=== PATIENT | male | born 1945 | race Caucasian/White ===

== ENCOUNTER 2016-06-01 06:43 | Day surgery (SDC) | payer OTHER ==
--- NOTE | ~2016-06-01 | EGD ---
EGD REPORT [facility] [address] [place] [address] NAME: TREMAYNE LINDSEY : [birth year] STATUS : REG [facility]#: [id number] AGE: 70 ADM/REG DATE : 06/01/16 MR#: [id number] REPORT SERV DATE: 06/01/16 DICTATED BY: CHARLES GILES DATE: 06/01/16 REPORT STATUS : Draft TRANSCRIBED BY: [facility] DATE: 06/01/16 Endoscopy Center Patient Name: Tremayne Lindsey. Date of : 1945 Attending MD: CHARLES GILES MD Procedure Date No Time: 06/01/2016 Procedure: Colonoscopy Indications: High risk colon cancer surveillance: Personal history of colonic polyps; last exam 2010. Patient Profile: Informed consent was obtained from the patient by me prior to the procedure. Risks, benefits, and alternatives were discussed including the risk of bleeding, perforation, infection, reaction to medicine, missed lesion, and cardiopulmonary complications. Referring MD: BLAYNE BAILEY Medicines: Monitored Anesthesia Care Complications: No immediate complications. Procedure: Pre-Anesthesia Assessment: - ASA Grade Assessment: III - A patient with severe systemic disease. After I obtained informed consent, the scope was passed under direct vision. Throughout the procedure, the patient's blood pressure, pulse, and oxygen saturations were monitored continuously. The CF [id number] was introduced through the anus and advanced to the cecum, identified by appendiceal orifice and ileocecal valve. The colonoscope was slowly withdrawn with careful examination all mucosal surfaces including specific attention around flexures and tip deflection behind folds; retroflexion performed in rectum. The colonoscopy was performed without difficulty. The patient tolerated the procedure well. The quality of the bowel preparation was adequate. The ileocecal valve, appendiceal orifice and rectum were photographed. Findings: A flat polyp was found in the descending colon. The polyp was 7 mm in size. The polyp was removed with a cold biopsy forceps. Resection and retrieval were complete. Multiple medium-mouthed diverticula were found in the sigmoid colon and in the descending colon. Internal hemorrhoids were found. Impression: - One 7 mm polyp in the descending colon. Resected and retrieved. EGD REPORT [address] [address] NAME: TREMAYNE LINDSEY : [birth year] STATUS : REG [facility] PAT#: [id number] AGE: 70 ADM/REG DATE : 06/01/16 MR#: [id number] REPORT SERV DATE: 06/01/16 DICTATED BY: CHARLES GILES DATE: 06/01/16 REPORT STATUS : Draft TRANSCRIBED BY: [employer] [facility] DATE: 06/01/16 - Diverticulosis in the sigmoid colon and in the descending colon. - Internal hemorrhoids. Recommendation: - Patient has a contact number available for emergencies. The signs and symptoms of potential delayed complications were discussed with the patient. Return to normal activities tomorrow. Written discharge instructions were provided to the patient. - Regular diet. - Await pathology results. - Continue present medications. - Repeat colonoscopy for surveillance based on pathology results. Procedure Code(s): --- Professional --- 59882, Colonoscopy, flexible, proximal to splenic flexure; with biopsy, single or multiple Diagnosis Code(s): --- Professional --- D12.4, Benign neoplasm of descending colon K57.30, Diverticulosis of large intestine without perforation or abscess without bleeding Z86.010, Personal history of colonic polyps CPT copyright 2013 [employer]. All rights reserved. The codes documented in this report are preliminary and upon stopboard assembler review may be revised to meet current compliance requirements. CHARLES GILES MD 06/01/2016 8:19 AM This report has been signed electronically. Number of Addenda: 0 Note Initiated On: 06/01/2016 7:51 AM Scope Withdrawal Time 0 hours 10 minutes 10 seconds [address] [place] [id number]
[~2016-06-01 06:43] MED LIST: ACTOS45 PO; ASA5GR PO; GLUCOTROL5 PO; GLUCPH PO; HYDROCHLOROT25 MG PO; LANTUS SC; LIPITOR20 PO; LISINOPRIL40 MG PO; LOP50 PO
== END 2016-06-01 23:59 | disposition home or self-care (01) ==
LOC: DMU 06:43
PROVIDERS: Internal Medicine Gastroenterology
PROC: 0DBM8ZZ Excision of Descending Colon, Via Natural or Artificial Opening Endoscopic (ICD-10-PCS; principal; 2016-06-01 08:00)
DX: Z12.11 Encounter for screening for malignant neoplasm of colon (principal); D12.4 Benign neoplasm of descending colon; K57.30 Diverticulosis of large intestine without perforation or abscess without bleeding; K64.8 Other hemorrhoids; I25.10 Atherosclerotic heart disease of native coronary artery without angina pectoris; I10 Essential (primary) hypertension; E11.9 Type 2 diabetes mellitus without complications; Z91.041 Radiographic dye allergy status; Z79.84 Long term (current) use of oral hypoglycemic drugs; Z79.82 Long term (current) use of aspirin; Z79.4 Long term (current) use of insulin; Z79.899 Other long term (current) drug therapy; Z86.010 Personal history of colon polyps; Z95.1 Presence of aortocoronary bypass graft
CPT/HCPCS: 82962; 88305